=== PATIENT | male | born 1990 | race Caucasian/White ===

== ENCOUNTER 2020-07-28 12:02 | Emergency (ER) | payer SELFPAY ==
[2020-07-28] MEDS ORDERED: Acetylcysteine (ACETADOTE) 20% 200 MG/ML (30 ML VIAL) ONE (12:24)
[2020-07-28] MEDS ORDERED: Boostrix 0.5 ML (Tdap) VIAL ONE (12:24)
[2020-07-28] MEDS ORDERED: Bacitracin 1 PK ONE (12:38)
== END 2020-07-28 12:57 | disposition home or self-care (01) ==
LOC: BURERS 12:02
DX: S91.311A Laceration without foreign body, right foot, initial encounter (principal); Z23 Encounter for immunization; F17.210 Nicotine dependence, cigarettes, uncomplicated; W26.8XXA Contact with other sharp object(s), not elsewhere classified, initial encounter; Z71.6 Tobacco abuse counseling
CPT/HCPCS: 12001; 90471; 90715; 99406; J0132